=== PATIENT | female | born 1990 | race Two or more races ===

== ENCOUNTER → 2017-06-18 | Day surgery (SDC) | payer MEDICAID ==
[~2017-06-18] VITALS: Ht 165.1 cm; Wt 103.4 kg
[~2017-06-18] MED LIST: AZITTAB2; LACTATED RINGER'S 1,000 ML IV SCH; SODIUM CHLORIDE 0.9% 1,000 ML IV ONE; ceFAZolin 1GM/50ML 50 ML IV ONE; ePHEDrine SULFATE 50 MG/ML AMP IV PRN; hydrALAZINE HCL 20 MG/ML VL IV PRN
[2017-06-18 14:23] LABS: Basophils # (auto) 0.1 uL; Basophils % (auto) 0.6 % (0.0-2.0); Eosinophils # (auto) 0.1 uL; Eosinophils % (auto) 0.9 % (0.0-7.0); Hemoglobin 12.6 g/dL (12.2-16.2); Lymphocytes # (auto) 2.1 uL; Mean Corpuscular Hemoglobin 28.5 pg (28.0-32.0); Mean Corpuscular Hgb Conc. 33.1 g/dL (32.0-36.0); Mean Corpuscular Volume 86.1 fL (80.0-100.0); Mean Platelet Volume 9.6 fL (6.9-10.8); Monocytes # (auto) 0.5 uL; Monocytes % (auto) 4.7 % (0.0-12.0); Neutrophils # (auto) 7.4 uL; Neutrophils % (auto) 72.8 % (37.0-80.0); Platelet Count (auto) 230 10^3/uL (140-450); White Blood Cell 10.2 10^3/uL (4.4-10.8)
[2017-06-18 14:35] LABS: INR 0.93 (0.9-1.15); Partial Thromboplastin Time 28.4 sec (22.64-33.71); Prothrombin Time 10.1 sec (9.37-12.3)
[2017-06-18 14:39] LABS: Albumin 3.6 g/dL (3.4-5.0); BUN/Creatinine Ratio 16.4; Bilirubin, Total 0.4 mg/dL (0.2-1.0); Potassium 4.1 mmol/L (3.5-5.1); Total Protein 8.2 g/dL (6.4-8.2)
[2017-06-18 21:20] VITALS: BP 121/60
== END | disposition home or self-care (01) ==
LOC: ER 10:46 → OR 1 10:47
PROVIDERS: ATTEND Specialist
DX: O34.32 Maternal care for cervical incompetence, second trimester (principal); O31.20X3 Continuing pregnancy after intrauterine death of one fetus or more, unspecified trimester, fetus 3; Z3A.14 14 weeks gestation of pregnancy; O60.10X0 Preterm labor with preterm delivery, unspecified trimester, not applicable or unspecified; Z88.6 Allergy status to analgesic agent; J45.909 Unspecified asthma, uncomplicated; Z90.49 Acquired absence of other specified parts of digestive tract; C56.9 Malignant neoplasm of unspecified ovary
CPT/HCPCS: 36415; 80053; 85025; 85610; 85730; J0690